=== PATIENT | female | born 1995 | race Caucasian/White ===

== ENCOUNTER 2022-03-04 07:46 | Inpatient (IN) ==
[2022-03-04] MEDS ORDERED: *HR* Nalbuphine 10 MG/ML AMPUL IV PRN (08:22)
[2022-03-04] MEDS ORDERED: Famotidine 20 MG/2 ML VIAL IVP PRN (08:22)
[2022-03-04] MEDS ORDERED: Metoclopramide 10 MG/2 ML VIAL IVP PRN (08:22)
[2022-03-04] MEDS ORDERED: Naloxone 0.4 MG/ML INJ IVP PRN (08:22)
[2022-03-04] MEDS ORDERED: Ringers Solution, Lactated 1,000 ML IVC SCH (08:30)
[2022-03-04 10:20] LABS: Basophils % 0.3 %; Eosinophils # 0.1 K/mcL (0.0-0.6); Eosinophils % 0.9 %; Hematocrit 37.8 % (35.3-44.9); Hemoglobin 12.2 g/dL (11.5-15.4); Immature Granulocytes % 0.3 % (0-4); Lymphocytes # 2.3 K/mcL (0.6-4.6); Lymphocytes % 20.1 %; Mean Corpuscular HGB Conc 32.3 g/dL (31.6-35.5); Mean Corpuscular Hemoglobin 29.3 pg (28.0-33.3); Mean Corpuscular Volume 90.9 fL (83.0-100.0); Mean Platelet Volume 10.9 fL (9.4-12.4); Monocytes # 0.5 K/mcL (0.0-1.3); Monocytes % 4.3 %; Neutrophils # 8.4 K/mcL (1.6-8.9); Platelet Count 290 K/mcL (140-400); Red Blood Count 4.16 M/mcL (3.82-4.97); Red Cell Distribution Width 13.5 % (11.5-14.5); Segmented Neutrophils % 74.1 %; White Blood Count 11.3 K/mcL (4.3-11.1)
[2022-03-04 10:25] LABS: Amphetamine Screen,Urine Negative ng/mL (Cutoff=1000); Barbiturate Screen,Urine Negative ng/mL (Cutoff=200); Benzodiazepines Screen,Urine Negative ng/mL (Cutoff=200); Cannabinoid Screen,Urine Negative ng/mL (Cutoff = 50); Cocaine Screen,Urine Negative ng/mL (Cutoff= 300); Opiate Screen,Urine Negative ng/mL (Cutoff=300); Phencyclidine Screen,Urine Negative ng/mL (Cutoff=25)
[2022-03-04 10:36] LABS: Glucose 82 mg/dL (70-105)
[2022-03-04] MEDS: miSOPROStoL 25 MCG TABLET PO PRN ×2 (11:08→16:12)
[2022-03-04] MEDS ORDERED: EPHEDrine 50 MG/ML VIAL IVP PRN (11:48)
[2022-03-04] MEDS ORDERED: Epidural Premix (fent/bupiv) 110 ML EP SCH (12:00)
[2022-03-04] MEDS ORDERED: Oxytocin 30 UNIT/503 ML BAG IVC SCH (20:30)
[2022-03-04] MEDS ORDERED: *HR* Labetalol 20 MG/4 ML SYRINGE IVP PRN (20:32)
[2022-03-04] MEDS ORDERED: *HR* Labetalol 20 MG/4 ML SYRINGE IVP ONE (20:36)
[2022-03-05 06:53] LABS: Alanine Aminotransferase 19 Units/L (7-52); Aspartate Amino Transferase 19 Units/L (13-39); BUN/Creatinine Ratio 15 (6-26); Blood Urea Nitrogen 8 mg/dL (6-20); Lactate Dehydrogenase 135 Units/L (140-271); Uric Acid 5.5 mg/dL (2.3-7.6)
[2022-03-05] MEDS ORDERED: *HR* Labetalol 20 MG/4 ML SYRINGE IVP ONE ×3 (06:59→09:54)
[2022-03-05] MEDS ORDERED: Ropivacaine/PF 0.5% 30 ML VIAL ONE (10:10)
[2022-03-05] MEDS ORDERED: Ropivacaine/PF 0.2% 20 ML VIAL ONE (10:11)
[2022-03-05] MEDS ORDERED: Oxytocin 30 UNIT/503 ML BAG IVC SCH (14:04)
[2022-03-05] MEDS ORDERED: OXYTOCIN/RINGERS LACTATE 10 UNIT/166.6 ML BAG IVC ONE (14:04)
[2022-03-05] MEDS ORDERED: Lanolin 7 G OINT...G. TP PRN (14:04)
[2022-03-05] MEDS ORDERED: Ondansetron ODT 4 MG TAB.RAPDIS SL PRN (14:04)
[2022-03-05] MEDS ORDERED: Benzocaine/Menthol 56 GM AEROSOL SPRAY TP PRN (14:04)
[2022-03-05] MEDS: Ibuprofen 600 MG TABLET PO SCH (19:42)
[2022-03-05] MEDS: *HR* Metformin 500 MG TABLET PO SCH (19:43)
[2022-03-05] MEDS: Acetaminophen 325 MG TABLET PO SCH (20:05)
[2022-03-06 05:17] VITALS: O2SAT 99
[2022-03-06 07:33] VITALS: BP 129/79; PULSE 89; TEMP 98.1
[2022-03-06] MEDS: *HR* Metformin 500 MG TABLET PO SCH (08:41)
[2022-03-06] MEDS: Ibuprofen 600 MG TABLET PO SCH (08:41)
[2022-03-06] MEDS: Acetaminophen 325 MG TABLET PO SCH (08:42)
[2022-03-06] MEDS ORDERED: Loratadine 10 MG TABLET PO SCH (09:00)
[2022-03-06] MEDS ORDERED: Famotidine 20 MG TABLET PO SCH (09:00)
[2022-03-06] MEDS ORDERED: Prenatal Vit/FA 1 EACH TABLET PO SCH (09:00)
== END 2022-03-06 15:28 | disposition home or self-care (01) | DRG 806 ==
LOC: 1NENULAB 07:46 → 1NENUOBS 03-05 13:29
PROVIDERS: ADMIT Obstetrics & Gynecology; ATTEND Obstetrics & Gynecology